=== PATIENT | female | born 2000 | race Hispanic/Latino ===

== ENCOUNTER 2019-09-24 20:38 | Outpatient (CLI) | payer MEDICAID ==
[2019-09-24 21:18] VITALS: BP 111/60
[2019-09-24] MEDS ORDERED: LACTATED RINGERS 1,000 ML IV ONE (21:39)
--- NOTE | 2019-09-24 23:32 | Ultrasound Report ---
ULTRASOUND OBSTETRIC LIMITED INDICATION / CLINICAL INFORMATION: PRESENTATION. Evaluate position. Clinical Gestational Age (GA): 34 weeks 6 days COMPARISON: None available. FINDINGS: Twin intrauterine . Twin A is lower than twin B. Both twins are in cephalic presentation. HEART RATE (beats per minute): Twin A = 168; twin B = 135 AMNIOTIC FLUID INDEX (cm) = not evaluated (normal = 7-24 cm) ADDITIONAL FINDINGS: None. IMPRESSION: 1. Twin intrauterine with both twins in cephalic presentation. Signer Name: Channing Whitman MD Signed: 09/24/2019 11:27 PM Workstation Name: [id number]
== END 2019-09-25 00:29 | disposition home or self-care (01) ==
LOC: TRG 20:38 → LD 20:41 → TRG 09-25 00:29
PROVIDERS: ATTEND Obstetrics & Gynecology
DX: O62.9 Abnormality of forces of labor, unspecified (principal); O26.893 Other specified pregnancy related conditions, third trimester; M54.5 Low back pain; O30.003 Twin pregnancy, unspecified number of placenta and unspecified number of amniotic sacs, third trimester; O47.03 False labor before 37 completed weeks of gestation, third trimester; Z3A.34 34 weeks gestation of pregnancy
CPT/HCPCS: 59025; 76815; 96360; J7120; 76816

== ENCOUNTER 2019-10-11 03:23 | Inpatient (IN) | payer MEDICAID ==
[2019-10-11 05:07] LABS: Basophils % (Auto) 0.3 % (0.0-1.8); Eosinophils # (Auto) 0.3 K/mm3 (0.0-0.4); Eosinophils % (Auto) 2.7 % (0.0-4.3); Hematocrit 34.3 % (30.3-42.9); Hemoglobin 11.8 gm/dl (10.1-14.3); Lymphocytes # (Auto) 2.4 K/mm3 (1.2-5.4); Lymphocytes % (Auto) 23.7 % (13.4-35.0); Mean Corpuscular HGB Conc 34 % (30-34); Mean Corpuscular Volume 89 fl (79-97); Monocytes # (Auto) 0.9 K/mm3 (0.0-0.8); Monocytes % (Auto) 8.6 % (0.0-7.3); Platelet Count 163 K/mm3 (140-440); Red Blood Count 3.86 M/mm3 (3.65-5.03); Red Cell Distribution Width 14.9 % (13.2-15.2)
[2019-10-11 05:21] LABS: Amphetamine Screen,Urine PRESUMPTIVE NEGATIVE; Benzodiazepines Screen,Urine PRESUMPTIVE NEGATIVE; Cannabinoid Screen,Urine PRESUMPTIVE NEGATIVE; Cocaine Screen,Urine PRESUMPTIVE NEGATIVE; Methadone Screen,Urine PRESUMPTIVE NEGATIVE; Opiate Screen,Urine PRESUMPTIVE NEGATIVE
[2019-10-11] MEDS ORDERED: LIDOCAINE (2%) 20 MG/1 ML VIAL 20 ML MDV INFILTRATI ONE (05:24)
[2019-10-11] MEDS ORDERED: TERBUTALINE 1 MG/1 ML INJ IVP PRN (05:24)
[2019-10-11] MEDS ORDERED: TERBUTALINE 1 MG/1 ML INJ SUB-Q PRN (05:24)
[2019-10-11] MEDS ORDERED: BUTORPHANOL 2 MG/1 ML INJ IV PRN (05:24)
[2019-10-11] MEDS ORDERED: ePHEDrine SULFATE 50 MG/1 ML INJ IV PRN (05:24)
[2019-10-11] MEDS ORDERED: PROMETHAZINE 25 MG TAB PO PRN ×2 (05:24→09:00)
--- NOTE | 2019-10-11 05:28 | Ultrasound Report ---
Obstetrical ultrasound. 10/11/2019. HISTORY: Twin gestation. Evaluate presentation. FINDINGS: Twin A is cephalic. heart tones are 123 bpm. Twin B is cephalic. heart tones ar e 115 bpm. Signer Name: Jonathan Juan MD Signed: 10/11/2019 5:24 AM Workstation Name: [id number]
[2019-10-11] MEDS ORDERED: LACTATED RINGERS 1,000 ML ONE (05:29)
[2019-10-11] MEDS ORDERED: BUTORPHANOL 2 MG/1 ML INJ ONE (05:29)
[2019-10-11] MEDS ORDERED: LACTATED RINGERS 1,000 ML IV SCH ×2 (06:00→09:00)
[2019-10-11] MEDS ORDERED: OXYTOCIN 20 UNIT/1000ML DRIP 20 UNITS/1,000 ML BAG IV SCH ×3 (06:00→12:21)
[2019-10-11] MEDS ORDERED: diphenhydrAMINE 50 MG/ML VIAL IV PRN (06:38)
[2019-10-11] MEDS ORDERED: diphenhydrAMINE 50 MG/ML VIAL ONE ×2 (06:46→09:22)
--- NOTE | 2019-10-11 07:36 | History and Physical Report ---
History of Present Illness Date of examination: 10/11/19 History of present illness: 18 YO with insufficient care presents to L&D with c/o regular contraction initial exam by RN 3cm Ultrasound shows both fetuses in vertex position. 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 (Denies h/o STDs) - Obstetrical History Expected Date of Delivery: 10/30/19 Actual Gestation: 37 Week(s) 3 Day(s) : 1 Para: 0 Hx # Term Pregnancies: 0 Number of Pregnancies: 0 Spontaneous Abortions: 0 Induced : 0 Number of Living Children: 0 Medications and Allergies Allergies Allergy/AdvReac Type Severity Reaction Status Date / Time No Known Allergies Allergy Unverified 09/24/19 21:36 Home Medications Medication Instructions Recorded Confirmed Last Taken Type Ferrous Sulfate [Feosol 325 MG tab] 325 mg PO DAILY #90 tablet 10/11/19 Unknown Rx Ibuprofen [Motrin 800 MG tab] 800 mg PO TID PRN #30 tablet 10/11/19 Unknown Rx oxyCODONE /ACETAMINOPHEN [Percocet 1 - 2 tab PO Q4HR PRN #20 tablet 10/11/19 Unknown Rx 5/325 mg] Active Meds: Active Medications Butorphanol Tartrate (Stadol) 2 mg IV Q2H PRN PRN Reason: Pain , Severe (7-10) Last Admin: 10/11/19 06:02 Dose: 2 mg Documented by: Diphenhydramine HCl (Benadryl) 25 mg IV Q6H PRN PRN Reason: Itching Last Admin: 10/11/19 06:51 Dose: 25 mg Documented by: Ephedrine Sulfate (Ephedrine Sulfate) 10 mg IV Q2M PRN PRN Reason: Hypotension Oxytocin/Sodium Chloride (Pitocin/Ns 20 Unit/1000ml Drip) 20 units in 1,000 mls @ 125 mls/hr IV DIRECT ALEXANDRA Lactated Ringer's (Lactated Ringers) 1,000 mls @ 125 mls/hr IV DIRECT ALEXANDRA Last Admin: 10/11/19 06:51 Dose: 125 mls/hr Documented by: Ampicillin Sodium (Ampicillin/Ns 1 Gm/50 Ml) 1 gm in 50 mls @ 100 mls/hr IV Q4HR ALEXANDRA; Protocol Promethazine HCl (Phenergan) 25 mg PO Q6H PRN PRN Reason: Nausea And Vomiting Terbutaline Sulfate (Brethine) 0.25 mg SUB-Q ONCE PRN PRN Reason: Hyperstimulation/Hypertonicity Terbutaline Sulfate (Brethine) 0.25 mg IVP ONCE PRN PRN Reason: Hyperstimulation/Hypertonicity - Vital Signs Vital signs: Vital Signs Pulse Pulse Ox 97 H 96 10/11/19 05:52 10/11/19 05:52 Temp Pulse Resp BP Pulse Ox 97.7 F 107 H 18 97 10/11/19 05:53 10/11/19 05:57 10/11/19 05:53 10/11/19 05:57 - Physical Exam Breasts: Positive: deferred Lungs: Positive: Normal air movement Abdomen: Positive: normal appearance, soft Cervix: Positive: other (per RN) Results Result Diagrams: 10/11/19 20:27 Abnormal lab results 10/11/19 Range/Units 04:42 [place] % (Auto) 8.6 H (0.0-7.3) % [place] # 0.9 H (0.0-0.8) K/mm3 All other labs normal. Assessment and Plan - Patient Problems (1) Insufficient care in third trimester Current Visit: Yes Status: Acute Plan to address problem: We'll attempt to require information from her previous providers (2) Twin gestation in third trimester Current Visit: Yes Status: Acute Qualifiers: Multiple gestation type: unspecified Qualified Code(s): O30.003 - Twin , unspecified number of placenta and unspecified number of amniotic sacs, third trimester (3) Short stature Current Visit: Yes Status: Acute Plan to address problem: Discussed with the patient due to her short stature and twin gestation she had very much increased risk that operative surgery may be required to deliver the infants. All questions were answered by patient and her family. (4) Active labor at term Current Visit: Yes Status: Acute Plan to address problem: We will continue to observe per protocol.
--- NOTE | 2019-10-11 07:57 | Progress Note ---
Assessment and Plan Discussed possible shoulder dystocia. She was informed at this gestational age and with her body habitus it is difficult to accurately determine adequacy of her pelvis as well as weight. Explained there could be a 1-2# discrepancy in the estimated weight with ultrasound. Complications associated with shoulder dystocia were extensively explained, including but now limited to: Permanent or temporary injury to the infant's extremities, permanent brain damage, or . She was also informed she may require an incision or a laceration may occur involving her vagina and/or perineum that may also involve the rectum. The incision may be performed to facilitate delivery of the . This incision/laceration may lead to future complications such as but not limited to, painful intercourse, rectovaginal fistula or fecal incontinence, multiple surgeries or other complications. Risks associated with delivery were discussed, including but not limited to: Bleeding that may require blood transfusion and its complications or hysterectomy, infection that may also require hysterectomy and may be fatal, injury to her bowel may require temporary or permanent colostomy, injury to her bladder that may also be temporary or permanent complications. She was also informed that once she's had a delivery she may require subsequent delivery with all future pregnancies. Questions were encouraged and answered. Patient voiced understanding. She desires to proceed with C/S. - Patient Problems (1) Active labor at term Current Visit: Yes Status: Acute (2) Insufficient care in third trimester Current Visit: Yes Status: Acute (3) Short stature Current Visit: Yes Status: Acute Plan to address problem: Patient states she was told a c/s would probably be best d/t her stature. (4) Twin gestation in third trimester Current Visit: Yes Status: Acute Qualifiers: Multiple gestation type: unspecified Qualified Code(s): O30.003 - Twin , unspecified number of placenta and unspecified number of amniotic sacs, third trimester Subjective - Subjective Date of service: 10/11/19 Objective - Vital Signs Vital Signs: Vital Signs - 12hr 10/11/19 10/11/19 10/11/19 05:52 05:53 05:57 Temperature 97.7 F Pulse Rate 97 H 107 H Respiratory 18 Rate O2 Sat by Pulse 96 97 Oximetry - Labs Labs: Abnormal Labs 10/11/19 04:42 [place] % (Auto) 8.6 H [place] # 0.9 H Laboratory Results - last 24 hr 10/11/19 10/11/19 10/11/19 04:40 04:42 04:42 WBC 10.0 RBC 3.86 Hgb 11.8 Hct 34.3 MCV 89 MCH 31 MCHC 34 RDW 14.9 Plt Count 163 Lymph % (Auto) 23.7 [place] % (Auto) 8.6 H Eos % (Auto) 2.7 Baso % (Auto) 0.3 Lymph # 2.4 [place] # 0.9 H Eos # 0.3 Baso # 0.0 Seg Neutrophils % 64.7 Seg Neutrophils # 6.5 Sickle Cell Screen Negative Urine Opiates Screen Presumptive negative Urine Methadone Screen Presumptive negative Ur Barbiturates Screen Presumptive negative Ur Phencyclidine Scrn Presumptive negative Ur Amphetamines Screen Presumptive negative U Benzodiazepines Scrn Presumptive negative Urine Cocaine Screen Presumptive negative U Marijuana (THC) Screen Presumptive negative Drugs of Abuse Note Disclamer Hep Bs Antigen Rubella IgG Antibody Non-immune Blood Type Antibody Screen 10/11/19 10/11/19 04:42 04:42 WBC RBC Hgb Hct MCV MCH MCHC RDW Plt Count Lymph % (Auto) [place] % (Auto) Eos % (Auto) Baso % (Auto) Lymph # [place] # Eos # Baso # Seg Neutrophils % Seg Neutrophils # Sickle Cell Screen Urine Opiates Screen Urine Methadone Screen Ur Barbiturates Screen Ur Phencyclidine Scrn Ur Amphetamines Screen U Benzodiazepines Scrn Urine Cocaine Screen U Marijuana (THC) Screen Drugs of Abuse Note Hep Bs Antigen Non-reactive Rubella IgG Antibody Blood Type A POSITIVE Antibody Screen Negative
[2019-10-11] MEDS ORDERED: ONDANSETRON 4 MG/2 ML INJ ONE (08:25)
--- NOTE | 2019-10-11 08:29 | Anesthesia Consultation ---
Anesthesia Consult and Med Hx Date of service: 10/11/19 - Airway Anesthetic Teeth Evaluation: Good ROM Head & Neck: Adequate Mental/Hyoid Distance: Adequate Mallampati Class: Class I - Pulmonary Exam CTA: Yes - Cardiac Exam Cardiac Exam: RRR - Pre-Operative Health Status ASA Pre-Surgery Classification: ASA2, Emergency Proposed Anesthetic Plan: Spinal (pt is very little in stature, with twins very little care) - Pulmonary Hx Asthma: No - Cardiovascular System Hx Hypertension: No - Central Nervous System Hx Seizures: No Hx Psychiatric Problems: No - Endocrine Hx Renal Disease: No Hx Hypothyroidism: No Hx Hyperthyroidism: No - Hematic Hx Anemia: No Hx Sickle Cell Disease: No - Other Systems Hx Alcohol Use: No
--- NOTE | 2019-10-11 08:29 | Anesthesia Day of Surgery ---
Anesthesia Day of Surgery - Day of Surgery Patient Examined: Yes Patient H&P Reviewed: Yes Patient is NPO: Yes
[2019-10-11] MEDS ORDERED: SODIUM CHLORIDE 0.9% 500 ML 500 ML IV NR (08:30)
[2019-10-11] MEDS ORDERED: ceFAZolin/Water 2 GM/20 ML 2 GM/20 ML SYRINGE IV NR (08:30)
[2019-10-11] MEDS ORDERED: DEXMEDETOMIDINE 200 MCG/2 ML VIAL IV ONE (08:39)
[2019-10-11] MEDS ORDERED: SODIUM CHLORIDE 0.9% IRR 1,500 ML BOTTLE IR ONE (08:48)
[2019-10-11] MEDS ORDERED: WATER FOR IRRIG STERILE 1,500 ML BOTTLE IR ONE (08:48)
[2019-10-11] MEDS ORDERED: HYDROmorphone 1 MG/1 ML INJ IV PRN (09:00)
[2019-10-11] MEDS ORDERED: FAMOTIDINE 20 MG/2 ML INJ IV ONE (09:00)
[2019-10-11] MEDS ORDERED: ONDANSETRON 4 MG/2 ML INJ IV PRN (09:00)
[2019-10-11] MEDS ORDERED: fentaNYL-BUPIV 2 MCG/ML-0.125% 200 MCG/100 ML BAG EPIDURAL SCH (09:00)
[2019-10-11] MEDS ORDERED: METOCLOPRAMIDE 10 MG/2 ML INJ IV ONE (09:00)
[2019-10-11] MEDS ORDERED: PROMETHAZINE 25 MG RECT SUPP PR PRN (09:00)
[2019-10-11] MEDS ORDERED: NALOXONE 0.4 MG/1 ML INJ IV PRN ×2 (09:00→12:21)
[2019-10-11] MEDS ORDERED: BICITRA ORAL LIQD 30ML PO ONE (09:00)
[2019-10-11] MEDS ORDERED: EPINEPHrine 1:10,000 1 MG/10 ML SYRINGE ONE (09:06)
[2019-10-11] MEDS ORDERED: ePHEDrine SULFATE 50 MG/1 ML INJ ONE (09:07)
[2019-10-11] MEDS ORDERED: KETOROLAC 30 MG/1 ML INJ ONE (09:22)
[2019-10-11] MEDS ORDERED: HYDROmorphone 1 MG/1 ML INJ ONE (09:23)
[2019-10-11] MEDS ORDERED: fentaNYL 100 MCG/2 ML INJ ONE (09:26)
[2019-10-11] MEDS ORDERED: AMPICILLIN/NS 1 GM/50 ML 1 GM/50 ML BAG IV SCH (09:26)
[2019-10-11] MEDS ORDERED: dexAMETHasone 20 MG/5 ML VIAL ONE ×2 (09:51→10:41)
--- NOTE | 2019-10-11 10:10 | Operative Report ---
PREOPERATIVE DIAGNOSES: 1. Intrauterine at 39 weeks, limited care, twin gestation, short stature, active labor, suspected contracted pelvis. POSTOPERATIVE DIAGNOSES: 1. Intrauterine at 39 weeks, limited care, twin gestation, short stature, active labor, suspected contracted pelvis, twin B footling breech. PROCEDURE: Primary low transverse . SURGEON: Dr. Fam. ANESTHESIA: Spinal. COMPLICATIONS: None. ANESTHESIOLOGIST: Dr. Branch. FINDINGS: A live born female , weight 4 pounds 13 ounces, Apgars 8 and 9. Twin B footling breech female, weight 5 pounds 3 ounces, Apgars 7, proceed with grossly normal uterus, tubes and ovaries. DESCRIPTION OF PROCEDURE: After risks, benefits, complications, consequence and alternatives of the procedure were discussed with the patient and informed consents to proceed. She was taken to the OR where spinal anesthesia was placed. She was placed in the left lateral tilt position and prepped and draped in the usual sterile fashion. Timeout was performed and appropriate level of anesthesia was noted, a Pfannenstiel incision was made and extended to the fascia, which was incised and extended in the lateral direction. The overlying fascia was sharply dissected away from the underlying rectus muscles in the superior and inferior direction. Midline was then bluntly. The vesicouterine fold was incised with blunt dissection. Bladder flap was created. Transverse incision was made in the lower uterine segment and extended in superolateral direction with finger fractionation. Clear fluid was noted. Twin A was delivered from the cephalic position atraumatically with spontaneous cry and excellent tone. Cord was doubly clamped and cut and the infant was given to the resuscitation team present. Membranes were ruptured on twin B, at which point a footling breech was identified. The was delivered from the footling breech position with spontaneous cry and excellent tone, cut and the cord was double clamped and was bulb suctioned. Cord was doubly clamped and cut and the was given to the resuscitation team present. The placentas were manually extracted. The uterus was exteriorized and cleaned of any further products of conception and placental tissue. The incision was reapproximated. Uterine incision was reapproximated using 0 Vicryl in a running interlocking stitch followed by further suture of 0 Vicryl in imbricating fashion. Once hemostasis was noted, the uterus was out back in the pelvic cavity and the pelvis was irrigated with warm normal saline. Chen was applied to the incision for hemostasis. Once hemostasis was noted, the attention was turned to the rectus muscle with the remainder of the Chen was applied for further hemostasis. The rectus muscles were approximated using 0 PDS and 2 interrupted stitches. Then, the fascia was reapproximated using 0 Vicryl in a simple running stitch. Once hemostasis was noted, the skin was reapproximated using 4-0 Vicryl on a Ananda needle in a subcuticular manner. Counts were correct x3. The patient tolerated the procedure well and was taken to recovery room in stable condition. [facility]# [id number] CHANI/SHEILA
[2019-10-11] MEDS: HYDROmorphone 1 MG/1 ML INJ IV PRN ×2 (10:11→11:20)
[2019-10-11 10:33] LABS: Hematocrit 32.5 % (30.3-42.9); Hemoglobin 11.1 gm/dl (10.1-14.3); Mean Corpuscular HGB Conc 34 % (30-34); Mean Corpuscular Volume 90 fl (79-97); Platelet Count 140 K/mm3 (140-440); Red Blood Count 3.62 M/mm3 (3.65-5.03); Red Cell Distribution Width 14.6 % (13.2-15.2)
[2019-10-11] MEDS ORDERED: BUPIVACAINE/PF (0.5%) 5 MG/1 ML 30 ML VIAL INFILTRATI ONE (10:41)
--- NOTE | 2019-10-11 12:00 | Post Anesthesia Evaluation ---
- Post Anesthesia Evaluation Patient Participated: Yes Airway Patent: Yes Stable Respiratory Function: Yes Nausea/Vomiting: No Temp > 96.8F: Yes Pain Manageable: No (QL block for post op pain block, per MD request) Adequeate Hydration: Yes Anesthesia Complications: No Block Receding Appropriately: Yes Patient on Ventilator: No
[2019-10-11] MEDS ORDERED: WITCH HAZEL/ GLYCERIN PAD TP PRN (12:21)
[2019-10-11] MEDS ORDERED: D5W/LACTATED RINGERS 1,000 ML IV SCH (12:21)
[2019-10-11] MEDS ORDERED: ACETAMINOPHEN 650 MG RECT SUPP PR PRN (12:21)
[2019-10-11] MEDS ORDERED: MORPHINE 4 MG/1 ML INJ IV PRN (12:21)
[2019-10-11] MEDS ORDERED: MORPHINE 2 MG/1 ML INJ IV PRN (12:21)
[2019-10-11] MEDS ORDERED: MAGNESIUM HYDROXIDE (MOM) ORAL LIQD UDC PO PRN (12:21)
[2019-10-11] MEDS ORDERED: LANOLIN/ZINC/DIMETHICONE (LANSINOH) 7 GM TP PRN (12:21)
[2019-10-11] MEDS ORDERED: ACETAMINOPHEN 325 MG TAB PO SCH (12:30)
[2019-10-11] MEDS ORDERED: FLU VACC QUAD 2019-20 (3 YR UP)/PF 60 MCG/0.5 ML SYRINGE IM ONE (14:00)
[2019-10-11] MEDS: ceFAZolin/NS 1 GM/50 ML 1 GM/50 ML BAG IV SCH (16:18)
[2019-10-11] MEDS: KETOROLAC 30 MG/1 ML INJ IV SCH ×2 (16:36→21:53)
[2019-10-11 20:46] LABS: Hematocrit 30.5 % (30.3-42.9); Hemoglobin 10.4 gm/dl (10.1-14.3)
[2019-10-11] MEDS: ACETAMINOPHEN 325 MG TAB PO SCH (21:51)
[2019-10-12] MEDS: ceFAZolin/NS 1 GM/50 ML 1 GM/50 ML BAG IV SCH (00:06)
[2019-10-12] MEDS: ACETAMINOPHEN 325 MG TAB PO SCH (05:40)
--- NOTE | 2019-10-12 08:27 | Progress Note ---
Assessment and Plan patient doing well, no s/s anemia. VSSAF, H&H 10.4/30.5, lochia scant, dressing D&I. encouraged advanced diet and activity as tolerated. Encouraged . - Patient Problems (1) delivery delivered Current Visit: Yes Status: Acute Plan to address problem: Continue postop pathway Advance diet and activity as tolerated RN to remove dressing after shower (2) Insufficient care in third trimester Current Visit: Yes Status: Acute Plan to address problem: Case management consult ordered. Subjective - Subjective Date of service: 10/12/19 Principal diagnosis: Postop day #1 s/p primary c/s, twins Patient reports: appetite normal, voiding normally, pain well controlled, flatus, ambulating normally, no dizzy ambulation, no nauseated : doing well, bottle feeding (pt plans on but currently bottle feeding) Objective - Vital Signs Latest vital signs: Vital Signs Temp Pulse Resp BP BP Pulse Ox 10/12/19 05:40 18 10/12/19 04:00 98.6 F 69 16 115/64 10/12/19 00:00 98.6 F 68 18 121/78 10/11/19 21:53 20 10/11/19 21:51 20 10/11/19 19:30 98.7 F 66 18 114/78 10/11/19 16:16 98.4 F 90 20 143/84 97 10/11/19 11:58 98.1 F 108 H 20 159/90 97 10/11/19 11:28 98.0 F 10/11/19 10:58 98 H 15 116/69 100 10/11/19 10:45 88 14 104/71 98 10/11/19 10:33 84 12 108/75 96 10/11/19 10:15 84 14 110/72 96 10/11/19 10:10 88 18 104/71 98 10/11/19 10:05 83 18 108/65 95 10/11/19 10:00 97.2 F L 89 14 130/70 95 10/11/19 08:43 105 H 97 10/11/19 08:40 106 H 94 10/11/19 08:38 118 H 99 10/11/19 08:30 106 H 97 10/11/19 08:25 103 H 97 Intake and Output 10/11/19 10/12/19 10/12/19 23:59 07:59 15:59 Intake Total 530 Output Total 1150 1400 Balance -620 -1400 Intake: IV 50 ANCEF/NS 1 GM/50 ML 1 gm 50 In 50 ml @ 100 mls/hr IV Q8H ALEXANDRA Rx#:[id number] Oral 480 Output: Urine 1150 1400 Indwelling Catheter 1150 Void 1400 Other: Total, Intake Amount 480 Total, Output Amount 800 600 # Voids Void 1 - Exam Breasts: Present: normal Cardiovascular: Present: Regular rate Lungs: Present: Normal air movement Abdomen: Present: normal appearance, soft Vulva: both: normal Uterus: Present: normal, firm, fundal height below umbilicus Extremities: Present: normal Deep Tendon Reflex Grade: Normal +2 Incision: Present: normal, dry, dressed - Labs Labs: Abnormal lab results 10/11/19 10/11/19 Range/Units 04:42 10:15 RBC 3.62 L (3.65-5.03) M/mm3 Crossmatch See Detail
[2019-10-12] MEDS ORDERED: IBUPROFEN 800 MG TAB PO PRN (09:59)
[2019-10-12] MEDS ORDERED: TETANUS,DIPH,PERTUSS(ACELL) VACCINE 0.5 ML SYRINGE IM ONE (10:01)
[2019-10-12] MEDS ORDERED: SODIUM CHLORIDE 0.9% 500 ML 500 ML ONE (10:21)
[2019-10-12] MEDS: oxyCODONE /ACETAMINOPHEN 5-325MG TAB PO PRN ×2 (15:00→23:04)
[2019-10-12] MEDS: SIMETHICONE 80 MG CHEW TAB PO PRN (15:00)
[2019-10-13] MEDS: SIMETHICONE 80 MG CHEW TAB PO PRN (09:19)
[2019-10-13] MEDS: oxyCODONE /ACETAMINOPHEN 5-325MG TAB PO PRN (09:22)
--- NOTE | 2019-10-13 09:40 | Discharge Summary ---
Providers - Providers Date of Admission: 10/11/19 03:24 Date of discharge: 10/13/19 (pt desires d/c) Attending physician: CHLOÉ CLEANING 10/11/19 12:21 Consult to Case Management [CONS] Routine Services Needed at Discharge: Skip Operator Notified:: case management Phone number called:: [phone] Additional Physician Instructions: limited PNC Consult to Manager [employer] [CONS] Routine Reason For Exam: Primary care physician: CHLOÉ CLEANING Hospitalization Reason for admission: active labor, other (limited PNC Twin gestation) Delivery: Procedure: primary low transverse Episiotomy: none Laceration: none Incision: normal, dry, intact Other procedures: none complications: none Discharge diagnosis: IUP at term delivered baby: twins (Girl/Girl) Hospital course: Uncomplicated section Resting No c/o voiced Desires d/c VSS FF below umb Lochia scant Dressing removed Incision D&I H&H stable No s/sx of anemia Doing well s/p c/s Twin girls P: d/c today RTO 1 week postop check appt made for pt at her request. Condition at discharge: Good Disposition: DC-01 TO HOME OR SELFCARE - Discharge Diagnoses (1) delivery delivered Status: Acute Comment: RTO 10-22-19 @ 1100 for postop visit. Plan - Discharge Medications Prescriptions: Ferrous Sulfate [Feosol 325 MG tab] 325 mg PO DAILY #90 tablet Ibuprofen [Motrin 800 MG tab] 800 mg PO TID PRN #30 tablet PRN Reason: Pain oxyCODONE /ACETAMINOPHEN [Percocet 5/325 mg] 1 - 2 tab PO Q4HR PRN #20 tablet PRN Reason: Pain - Provider Discharge Summary Activity: routine, no sex for 6 weeks, no heavy lifting 4 weeks, no strenuous exercise Diet: routine Instructions: routine Additional instructions: [] Smoking cessation referral if applicable(refer to patient education folder for contact #) [] Refer to [facility] Booklet Call your doctor immediately for: * Fever > 100.5 * Heavy vaginal bleeding ( >1 pad per hour) * Severe persistent headache * Shortness of breath * Reddened, hot, painful area to leg or breast * Drainage or odor from incision. * Keep incision clean and dry at all times and follow doctor's instructions regarding bathing/showering - Follow up plan Follow up: CHLOÉ CLEANING MD [Primary Care Provider] - 10/22/19 11:00 am (Congratulations! Your visit is scheduled for 10-22-19 at 11:00AM in the [place] office. Take medications as prescribed. Call with any concerns. [facility] [place] [address] [place] [address], [address], [id number] )
[2019-10-13 18:37] VITALS: BP 139/71
[2019-10-15 13:25] LABS: HIV-1 Antibody Differentiation SEE SCANNED RESULT; HIV-2 Antibody Differentiation SEE SCANNED RESULT
== END 2019-10-13 17:00 | disposition home or self-care (01) | DRG 766 ==
LOC: TRG 03:23 → LD 03:24 → TRG 03:36 → LD 05:22 → OB 12:19
PROVIDERS: ADMIT Obstetrics & Gynecology; ATTEND Obstetrics & Gynecology
PROC: 10D00Z1 Extraction of Products of Conception, Low, Open Approach (ICD-10-PCS; principal; 2019-10-11)
PROC: 3E0T3BZ Introduction of Anesthetic Agent into Peripheral Nerves and Plexi, Percutaneous Approach (ICD-10-PCS; 2019-10-11)
PROC: 3E0234Z Introduction of Serum, Toxoid and Vaccine into Muscle, Percutaneous Approach (ICD-10-PCS; 2019-10-12)
DX: O30.043 Twin pregnancy, dichorionic/diamniotic, third trimester (principal); O32.1XX2 Maternal care for breech presentation, fetus 2; O33.1 Maternal care for disproportion due to generally contracted pelvis; Z3A.37 37 weeks gestation of pregnancy; Z37.2 Twins, both liveborn; Z23 Encounter for immunization
CPT/HCPCS: 36415; 76815; 80307; 85014; 85018; 85025; 85027; 85660; 86592; 86689; 86706; 86762; 86850; 86900; 86901; 86920; 88307; 90686; G0378; J0171; J0595; J0690; J1100; J1170; J1200; J1885; J2405; J2590; J3010; J3490; J7040; J7120; J7121